=== PATIENT | female | born 1985 | race African-American/Black ===

== ENCOUNTER 2018-05-10 23:35 | Emergency (ER) | payer SELFPAY ==
[~2018-05-10] VITALS: Ht 170.2 cm; Wt 109.7 kg
[2018-05-11 00:54] LABS: CHLORIDE 106 mEq/L (98-107)
[2018-05-11 00:58] LABS: BASOPHILS % 0.2 % (0.0-2.0); EOSINOPHILS % 1.3 % (0.0-5.0); LYMPHOCYTES % 31.2 % (20.0-50.0); MEAN CORPUSCULAR HEMOGLOBIN 29.5 pg (28.0-32.0); MEAN PLATELET VOLUME 7.8 fl (7.4-10.4); MONOCYTES % 6.6 % (2.0-8.0); NEUTROPHILS % 60.7 % (40.0-76.0); PLATELET 346 x1000/uL (130-400); RED BLOOD CELL COUNT 4.09 mill/uL (4.2-5.4); RED CELL DISTRIBUTION WIDTH 14.5 % (11.6-14.6)
[2018-05-11] MEDS ORDERED: POTASSIUM CHLORIDE 20MEQ TABLET SR PO SCH (01:15)
[2018-05-11 03:50] VITALS: BP 101/62
== END 2018-05-11 04:00 | disposition home or self-care (01) ==
LOC: ER 23:35
DX: R07.89 Other chest pain (principal); F41.9 Anxiety disorder, unspecified; E87.6 Hypokalemia; E11.9 Type 2 diabetes mellitus without complications; Z98.890 Other specified postprocedural states; Z88.6 Allergy status to analgesic agent
CPT/HCPCS: 36415; 71045; 81025; 85379; 99284